=== PATIENT | male | born 1985 | race Caucasian/White ===

== ENCOUNTER → 2024-06-29 13:45 | Outpatient (REF) | payer OTHER, SELFPAY | LOC: PAVMRI 13:45 | PROVIDERS: ATTENDING PHYSICIAN Nurse Practitioner Family | DX: R20.2 Paresthesia of skin (principal) | CPT/HCPCS: 72157; A9575 ==

== ENCOUNTER → 2024-07-26 17:53 | Outpatient (REF) | payer OTHER, SELFPAY | LOC: MRI 3T 17:53 | PROVIDERS: ATTENDING PHYSICIAN Nurse Practitioner Family | DX: R20.2 Paresthesia of skin (principal) | CPT/HCPCS: 70553; 72156; A9575 ==